=== PATIENT | male | born 1965 | race Caucasian/White ===

== ENCOUNTER 2016-07-03 18:20 | Emergency (ER) | payer OTHER ==
[~2016-07-03] VITALS: Ht 165.1 cm; Wt 77.1 kg
[2016-07-03 18:33] VITALS: BP 155/91; PULSE 83; RESP 18; TEMP 97.3; O2SAT 100
--- NOTE | 2016-07-03 18:38 | NUR ---
Patient triaged and placed in waiting room. VSS and patient appears in no acute distress at this time. Accompanied by , awaiting available bed, and MD notified of need for MSE.
--- NOTE | 2016-07-03 18:45 | NUR ---
Pt brought by self, A&Ox4, pt c/o lower back pain 11/01 aprox 2 weeks ago ,skin pink and warm, cap refill <3, VS WNL,
--- NOTE | 2016-07-03 19:45 | NUR ---
Placed in room 02 . Placed on director dental services, blood pressure machine and pulse oximeter. To gown for exam. Side rails up. Report given to ZANDER Lopez.
[2016-07-03] MEDS ORDERED: IBUPROFEN 600 MG TABLET PO ONE (21:30)
[2016-07-03 21:39] VITALS: BP 142/91; PULSE 83; RESP 18; TEMP 97.3; O2SAT 100
--- NOTE | 2016-07-03 21:40 | NUR ---
Patient given written and verbal discharge instructions and verbalizes understanding. ER MD discussed with patient the results and treatment provided. Given copies of tests performed in ER. Patient in stable condition. ID arm band removed. Patient educated on pain management and to follow up with PMD. Pain Scale 3/10 tolerable for pt Opportunity for questions provided and answered.
== END 2016-07-03 21:40 | disposition home or self-care (01) ==
LOC: SED 18:20
DX: S39.012A Strain of muscle, fascia and tendon of lower back, initial encounter (principal); X50.0XXA Overexertion from strenuous movement or load, initial encounter; X50.9XXA Other and unspecified overexertion or strenuous movements or postures, initial encounter; Y93.89 Activity, other specified; Y92.89 Other specified places as the place of occurrence of the external cause; Y99.8 Other external cause status
CPT/HCPCS: 99282